=== PATIENT | female | born 1985 | race Caucasian/White ===

== ENCOUNTER 2017-06-19 10:31 | Emergency (ER) | payer MEDICAID ==
[~2017-06-19] VITALS: Ht 162.6 cm; Wt 77.0 kg
[2017-06-19 10:46] VITALS: BP 119/80
== END 2017-06-19 11:44 | disposition left against medical advice (07) ==
LOC: ER 10:31
DX: Z04.9 Encounter for examination and observation for unspecified reason (principal); Z53.21 Procedure and treatment not carried out due to patient leaving prior to being seen by health care provider